=== PATIENT | female | born 1980 | race Caucasian/White ===

== ENCOUNTER 2019-10-24 04:04 | Emergency (ER) | payer BC ==
[2019-10-24] MEDS ORDERED: Esmolol 100 MG/10 ML VIAL ONE (04:19)
[2019-10-24] MEDS ORDERED: Bupivacaine 0.5% 10 ML VIAL ONE (04:19)
[2019-10-24] MEDS ORDERED: Cephalexin 250 MG CAP ONE (04:32)
== END 2019-10-24 04:38 | disposition home or self-care (01) ==
LOC: BURERS 04:04
DX: K04.7 Periapical abscess without sinus (principal); L03.211 Cellulitis of face; G43.909 Migraine, unspecified, not intractable, without status migrainosus; F17.210 Nicotine dependence, cigarettes, uncomplicated
CPT/HCPCS: 64400; J3490